=== PATIENT | female | born 1945 | race African-American/Black ===

== ENCOUNTER 2020-06-28 10:10 | Outpatient (REF) | payer OTHER, SELFPAY ==
[2020-06-28 10:56] LABS: MANUAL DIFF FLAG NO
[2020-06-28 10:57] LABS: Basophils Percent Auto 0.4 % (0-2); Eosinophils Percent Auto 0.4 % (0-4); Hematocrit 37.9 % (37-47); Hemoglobin 11.9 g/dl (12.0-16.0); Imm Gran Abs Auto 0.01 X10*3/uL (0.00-0.03); Imm Gran Pct Auto 0.2 % (0.0-0.4); Lymphocytes Absolute Auto 2.7 X10*3/uL (1.2-4.9); Lymphocytes Percent Auto 57.2 % (20-40); Mean Corpuscular HGB Conc 31.4 g/dl (31.0-35.0); Mean Corpuscular Hemoglobin 29.1 pg (27.0-33.0); Mean Corpuscular Volume 92.7 fL (80-98); Mean Platelet Volume 9.8 fL (9.4-12.3); Monocytes Absolute Auto 0.5 X10*3/uL (0.1-1.2); Monocytes Percent Auto 11.2 % (2-11); Neutrophils Absolute Auto 1.4 X10*3/uL (2.0-8.3); Neutrophils Percent Auto 30.6 % (45-73); Platelet Count 228 X10*3/uL (160-400); Red Blood Count 4.09 X10*6/uL (4.20-5.50); Red Cell Distribution Width 13.1 % (11.0-16.0); White Blood Count 4.6 X10*3/uL (4.8-10.8)
[2020-06-28 11:11] LABS: Glucose Urine UA NEG (NEG); Leukocyte Esterase Urine NEG (NEG); Nitrite Urine NEG (NEG); Specific Gravity - Urine >= 1.030 (1.005-1.025); Urine Blood 1+ (NEG); Urine Ketones NEG (NEG); Urine Protein 2+ MG/DL (NEG-TRACE)
[2020-06-28 11:14] LABS: Appearance Urine HAZY; Color Urine YELLOW
[2020-06-28 11:22] LABS: Alanine Aminotransferase 9 U/L (0-31); Albumin Level 4.3 g/dL (3.5-5.0); Alkaline Phosphatase 75 U/L (39-117); Anion Gap 15 (12-20); Aspartate Amino Transferase 15 U/L (5-31); Bilirubin Total 0.5 mg/dL (0.0-1.0); Blood Urea Nitrogen 27 mg/dL (9-16); Calcium 9.6 mg/dL (8.4-10.2); Carbon Dioxide 27 mmol/L (22-29); Chloride 103 mmol/L (96-108); Cholesterol 180 mg/dL; Estimated Glomerular Filt Rate 34; Glucose Fasting 90 mg/dL (60-99); HDL Cholesterol 45 mg/dL; LDL Cholesterol Calculated 115 mg/dl; Potassium 4.5 mmol/l (3.3-5.1); Sodium 140 mmol/L (135-145); Total Protein 7.6 g/dL (6.5-8.0); Triglycerides 100 mg/dL
[2020-06-28 11:23] LABS: Amorphous Sediment Urine 1+ /LPF; Mucus Urine 3+ /LPF; Squamous Epithelial Cell Urine 2+ /LPF; WBC Urine 0 /HPF (0-4)
[2020-06-28 11:35] LABS: Reflex LDLD? No
[2020-06-28 11:43] LABS: Vitamin D 25-OH Total 119.6 ng/mL (>30)
== END 2020-06-28 10:11 | disposition home or self-care (01) ==
LOC: HO.LAB 10:10
PROVIDERS: PCP Internal Medicine; Visit Provider Internal Medicine
DX: Z00.00 Encounter for general adult medical examination without abnormal findings (principal); I10 Essential (primary) hypertension; E78.00 Pure hypercholesterolemia, unspecified; D70.8 Other neutropenia; E55.9 Vitamin D deficiency, unspecified
CPT/HCPCS: 36415; 80053; 80061; 81001; 81003; 82306; 85025

== ENCOUNTER 2020-08-24 10:39 | Outpatient (REF) | payer OTHER, SELFPAY ==
[2020-08-24 11:39] LABS: MANUAL DIFF FLAG NO
[2020-08-24 11:51] LABS: Basophils Percent Auto 0.6 % (0-2); Eosinophils Percent Auto 0.2 % (0-4); Hematocrit 36.6 % (37-47); Hemoglobin 11.6 g/dl (12.0-16.0); Imm Gran Abs Auto 0.01 X10*3/uL (0.00-0.03); Imm Gran Pct Auto 0.2 % (0.0-0.4); Lymphocytes Absolute Auto 2.5 X10*3/uL (1.2-4.9); Lymphocytes Percent Auto 47.8 % (20-40); Mean Corpuscular HGB Conc 31.7 g/dl (31.0-35.0); Mean Corpuscular Hemoglobin 28.6 pg (27.0-33.0); Mean Corpuscular Volume 90.1 fL (80-98); Mean Platelet Volume 10.2 fL (9.4-12.3); Monocytes Absolute Auto 0.8 X10*3/uL (0.1-1.2); Monocytes Percent Auto 14.5 % (2-11); Neutrophils Percent Auto 36.7 % (45-73); Platelet Count 244 X10*3/uL (160-400); Red Blood Count 4.06 X10*6/uL (4.20-5.50); Red Cell Distribution Width 12.2 % (11.0-16.0); White Blood Count 5.3 X10*3/uL (4.8-10.8)
[2020-08-24 12:21] LABS: Albumin Level 4.1 g/dL (3.5-5.0); Anion Gap 14 (12-20); Blood Urea Nitrogen 30 mg/dL (9-16); Carbon Dioxide 29 mmol/L (22-29); Chloride 102 mmol/L (96-108); Estimated Glomerular Filt Rate 37; Magnesium 2.4 mg/dL (1.6-2.6); Phosphorus 4.6 mg/dL (2.7-4.5); Potassium 4.5 mmol/L (3.3-5.1); Sodium 140 mmol/L (135-145)
[2020-08-24 12:46] LABS: Vitamin D 25-OH Total 102.9 ng/mL (>30)
[2020-08-24 13:33] LABS: Renal w Reflex Lab Use Only Order verified
[2020-08-26 12:07] LABS: Calcium (PTHI) 9.8 mg/dL (8.6-10.4); PTHI 26 pg/mL (14-64)
== END 2020-08-24 10:40 | disposition home or self-care (01) ==
LOC: HO.LAB 10:39
PROVIDERS: PCP Internal Medicine; Visit Provider Internal Medicine Nephrology
DX: I12.9 Hypertensive chronic kidney disease with stage 1 through stage 4 chronic kidney disease, or unspecified chronic kidney disease (principal); N18.9 Chronic kidney disease, unspecified; N17.9 Acute kidney failure, unspecified
CPT/HCPCS: 36415; 80051; 82040; 82306; 82310; 82565; 83735; 83970; 84100; 84520; 85025

== ENCOUNTER 2020-08-26 10:14 | Outpatient (REF) | payer OTHER, SELFPAY ==
[2020-08-26 12:34] LABS: Glucose Urine UA NEG (NEG); Leukocyte Esterase Urine NEG (NEG); Nitrite Urine NEG (NEG); Specific Gravity - Urine 1.025 (1.005-1.025); Urine Blood TRACE (NEG); Urine Ketones NEG (NEG); Urine Protein 1+ MG/DL (NEG-TRACE)
[2020-08-26 12:41] LABS: Appearance Urine HAZY; Color Urine YELLOW
[2020-08-26 12:59] LABS: Creatinine Urine 87.87 mg/dL; Total Protein Urine Random 57 mg/dL (<12)
[2020-08-26 13:16] LABS: Bacteria Urine 1+ /LPF; RBC Urine 0-2 /HPF (0); Squamous Epithelial Cell Urine 2+ /LPF; WBC Urine 0-2 /HPF (0-4)
[2020-08-26 13:17] LABS: Mucus Urine 1+ /LPF
== END 2020-08-26 10:15 | disposition home or self-care (01) ==
LOC: HO.LNP 10:14
PROVIDERS: Visit Provider Internal Medicine Nephrology
DX: Z13.89 Encounter for screening for other disorder (principal)
CPT/HCPCS: 81001; 81003; 84156

== ENCOUNTER 2020-12-27 10:46 | Outpatient (REF) | payer OTHER, SELFPAY ==
[2020-12-27 12:38] LABS: Alanine Aminotransferase 7 U/L (0-31); Albumin Level 4.2 g/dL (3.5-5.0); Alkaline Phosphatase 77 U/L (39-117); Aspartate Amino Transferase 16 U/L (5-31); Bilirubin Direct 0.2 mg/dL (0.0-0.5); Bilirubin Total 0.7 mg/dL (0.0-1.0); Cholesterol 182 mg/dL; HDL Cholesterol 50 mg/dL; LDL Cholesterol Calculated 107 mg/dl; Total Protein 7.5 g/dL (6.5-8.0); Triglycerides 125 mg/dL
[2020-12-27 13:07] LABS: Reflex LDLD? No
== END 2020-12-27 10:47 | disposition home or self-care (01) ==
LOC: HO.LNP 10:46
PROVIDERS: PCP Internal Medicine; Visit Provider Internal Medicine
DX: E78.00 Pure hypercholesterolemia, unspecified (principal)
CPT/HCPCS: 80061; 80076

== ENCOUNTER 2021-04-25 08:33 | Outpatient (REF) | payer OTHER, SELFPAY ==
--- NOTE | ~2021-04-25 | MM_ITS ---
EXAMINATION: MM SCREENING DIGITAL BREAST TOMOSYNTHESIS, BILATERAL CLINICAL INFORMATION: Screening. Asymptomatic. The lifetime risk of breast cancer based on the Tyrer-Cuzick Model is 2.8%. COMPARISON: Mammography: November 14, 2018 and studies dating back to June 08, 2010 TECHNIQUE: Digital breast tomosynthesis is performed in both the craniocaudal and mediolateral oblique views along with computer-aided detection (CAD). Synthesized 2D images are generated from the tomosynthesis. FINDINGS: There are scattered areas of fibroglandular density (ACR BI-RADS breast composition Category b). There are no significant masses, abnormal calcifications, or other abnormalities. MM/MM tomosynthesis screening BI IMPRESSION: There are no significant changes from prior study. ASSESSMENT: BI-RADS 1: Negative RECOMMENDATION: Routine annual mammography screening. This patient's information was entered into a reminder system with a target due date for their next mammogram.
== END 2021-04-25 08:34 | disposition home or self-care (01) ==
LOC: HO.MAMMO 08:33
PROVIDERS: Visit Provider Internal Medicine
DX: Z12.31 Encounter for screening mammogram for malignant neoplasm of breast (principal)
CPT/HCPCS: 77063; 77067

== ENCOUNTER 2021-05-09 10:20 | Outpatient (REF) | payer OTHER, SELFPAY ==
[2021-05-09 11:05] LABS: Appearance Urine CLEAR; Color Urine YELLOW; Glucose Urine UA NEG (NEG); Leukocyte Esterase Urine NEG (NEG); Nitrite Urine NEG (NEG); PH 5.5 (5.0-8.0); Specific Gravity - Urine >= 1.030 (1.005-1.025); Urine Blood 1+ (NEG); Urine Ketones NEG (NEG); Urine Protein 2+ MG/DL (NEG-TRACE)
[2021-05-09 12:00] LABS: Squamous Epithelial Cell Urine 1+ /LPF; WBC Urine 0 /HPF (0-4)
[2021-05-09 12:02] LABS: Amorphous Sediment Urine 1+ /LPF; Other Casts Urine 0-2 /LPF
== END 2021-05-09 10:21 | disposition home or self-care (01) ==
LOC: HO.LNP 10:20
PROVIDERS: PCP Internal Medicine; Visit Provider Internal Medicine
DX: R31.9 Hematuria, unspecified (principal); N39.0 Urinary tract infection, site not specified
CPT/HCPCS: 81001; 81003; 87086

== ENCOUNTER → 2021-05-23 08:25 | Outpatient (BNVA) | payer OTHER, SELFPAY | PROVIDERS: PCP Internal Medicine; Referring Provider Internal Medicine; Visit Provider Internal Medicine | DX: I42.9 Cardiomyopathy, unspecified (principal); I35.0 Nonrheumatic aortic (valve) stenosis; I44.7 Left bundle-branch block, unspecified; I12.9 Hypertensive chronic kidney disease with stage 1 through stage 4 chronic kidney disease, or unspecified chronic kidney disease; N18.9 Chronic kidney disease, unspecified; Q21.1 Atrial septal defect | CPT/HCPCS: 93005; 99212 ==

== ENCOUNTER 2021-07-11 10:42 | Outpatient (REF) | payer OTHER, MEDICAID, SELFPAY ==
[2021-07-11 10:47] LABS: MANUAL DIFF FLAG NO
[2021-07-11 11:24] LABS: Basophils Percent Auto 0.8 % (0-2); Eosinophils Percent Auto 0.4 % (0-4); Hematocrit 41.9 % (37.0-47.0); Hemoglobin 12.9 g/dl (12.0-16.0); Imm Gran Abs Auto 0.01 X10*3/uL (0.00-0.03); Imm Gran Pct Auto 0.2 % (0.0-0.4); Lymphocytes Absolute Auto 2.3 X10*3/uL (1.2-4.9); Lymphocytes Percent Auto 45.3 % (20-40); Mean Corpuscular HGB Conc 30.8 g/dl (31.0-35.0); Mean Corpuscular Hemoglobin 28.4 pg (27.0-33.0); Mean Corpuscular Volume 92.3 fL (80.0-98.0); Mean Platelet Volume 10.8 fL (9.4-12.3); Monocytes Absolute Auto 0.8 X10*3/uL (0.1-1.2); Monocytes Percent Auto 15.1 % (2-11); Neutrophils Percent Auto 38.2 % (45-73); Platelet Count 207 X10*3/uL (160-400); Red Blood Count 4.54 X10*6/uL (4.20-5.50); Red Cell Distribution Width 13.2 % (11.0-16.0); White Blood Count 5.1 X10*3/uL (4.8-10.8)
[2021-07-11 11:32] LABS: Appearance Urine CLEAR; Color Urine YELLOW; Glucose Urine UA NEG (NEG); Leukocyte Esterase Urine NEG (NEG); Nitrite Urine NEG (NEG); Specific Gravity - Urine 1.025 (1.005-1.025); Urine Blood 2+ (NEG); Urine Ketones NEG (NEG); Urine Protein 2+ MG/DL (NEG-TRACE)
[2021-07-11 11:50] LABS: Amorphous Sediment Urine 2+ /LPF; RBC Urine 0-2 /HPF (0); Squamous Epithelial Cell Urine 2+ /LPF; WBC Urine 0-2 /HPF (0-4)
[2021-07-11 12:05] LABS: Alanine Aminotransferase 9 U/L (0-31); Albumin Level 4.1 g/dL (3.5-5.0); Alkaline Phosphatase 100 U/L (39-117); Anion Gap 14 (12-20); Aspartate Amino Transferase 17 U/L (5-31); Bilirubin Total 0.7 mg/dL (0.0-1.0); Blood Urea Nitrogen 19 mg/dL (9-16); Calcium 10.2 mg/dL (8.4-10.2); Carbon Dioxide 26 mmol/L (22-29); Chloride 105 mmol/L (96-108); Cholesterol 175 mg/dL; Estimated Glomerular Filt Rate 30; Glucose Fasting 109 mg/dL (60-99); HDL Cholesterol 44 mg/dL; LDL Cholesterol Calculated 106 mg/dl; Potassium 4.2 mmol/L (3.3-5.1); Sodium 141 mmol/L (135-145); Total Protein 7.9 g/dL (6.5-8.0); Triglycerides 128 mg/dL
[2021-07-11 12:38] LABS: Vitamin D 25-OH Total 56.3 ng/mL (>30)
== END 2021-07-11 10:43 | disposition home or self-care (01) ==
LOC: HO.LNP 10:42
PROVIDERS: Visit Provider Internal Medicine
DX: Z00.00 Encounter for general adult medical examination without abnormal findings (principal); I10 Essential (primary) hypertension; E78.00 Pure hypercholesterolemia, unspecified; E55.9 Vitamin D deficiency, unspecified; D72.820 Lymphocytosis (symptomatic)
CPT/HCPCS: 80053; 80061; 81001; 81003; 82306; 84153; 85025

== ENCOUNTER → 2021-07-12 08:50 | Outpatient (REF) | payer OTHER, MEDICAID, SELFPAY ==
--- NOTE | 2021-07-12 08:53 | CA_ITS ---
Transthoracic Echocardiogram Patient (Last, First, Middle): Bernice Mena T Gender: Female Date of : 1945 Age: 75 Procedure Date: 07/12/2021 Procedure Type: Transthoracic Echocardiogram Location: OP Height: 172.72 cm Weight: 70.31 kg BSA: 1.83 m2 Heart Rate: bpm BP: 135 / 45 mmHg Table Worker: LORENZO Referring MD: Zia Holden MD Symptoms: I42.9 - Cardiomyopathy, unspecified Study Quality: Fair ECG Rhythm: Sinus Conclusions: - The left ventricular systolic function is mildly decreased. The visually estimated ejection fraction is between 45-50%. - There is mild aortic valve stenosis. Findings Left Ventricle Normal left ventricular cavity size. The left ventricular systolic function is mildly decreased. The visually estimated ejection fraction is between 45 50%. There is mild global hypokinesis. There is paradoxical septal motion consistent with a left bundle branch block. E/E prime ratio is between 8 and 15 consistent with indeterminate filling pressures. Evidence suggests grade I (mild) diastolic dysfunction. Right Ventricle Normal right ventricular cavity size and systolic function. Atria Both atria are normal in size. There is lipomatous hypertrophy of the interatrial septum. There is a mobile atrial septum noted. Interatrial shunt cannot be excluded. Aortic Valve There is moderate calcification of the aortic valve. There is mild aortic valve stenosis. The mean gradient is 11 mmHg. The aortic valve area is 1.55 cm2. There is trace (trivial) aortic valve regurgitation. Mitral Valve The mitral valve appears normal. There is trace mitral valve regurgitation. There is no mitral valve stenosis. Pulmonic Valve The pulmonic valve was not well visualized. Tricuspid Valve Normal tricuspid valve structure. There is mild tricuspid valve regurgitation. The pulmonary artery systolic pressure is normal. Great Vessels The aortic annulus, sinuses of valsalva, and asc aorta are normal in size. Venous The inferior vena cava is normal in size and collapses greater than 50% with inspiration. Pericardium/Pleural There is no evidence of pericardial effusion. Prior Study Comparison Changes noted compared to prior study dated: 12/09/2019. Slight increase in LVEF. Measurements 2D Linear Measurements IVSd: 0.96 0.6-0.9/0.6-1.0 cm LVIDd: 4.93 3.9-5.3/4.2-5.9 cm LVIDd Index: 2.69 2.4-3.2/2.2-3.1 cm/m2 LVIDs: 3.36 2.0-3.6 cm LVPWd: 0.82 0.7-1.1 cm Ao Root: 2.80 2.1-3.5 cm LA Diam: 3.20 2.7-3.8/3.0-4.0 cm LAIDs Index: 1.75 1.5-2.3 cm/m2 LV Mass: 190.28 67-162/88-224 g LV Mass Index: 103.98 43-95/49-115 g/m2 LVOT Diam: 2.00 3.0+(-)1.3 cm 2D Systolic Function EF 4C: 49.60 >55% EF 2C: 55.50 >55% EF BiP: 51.60 >55% Mitral Valve MV Pk E: 0.55 MV PK A: 0.78 MV Decel Time: 399.00 E/A: 0.70 E'Lateral: 5.44 E'Medial: 4.35 E/E' Med: 12.50 E/E' Lat: 10.00 PHT: 117.00 MVA PHT: 1.88 Decel Bandera: 1.37 Aortic Valve AoV Pk Luism Iguel: 2.36 AoV Mn Luis Miguel: 1.56 AoV VTI: 0.52 AoV Pk Grad: 22.00 Aov Mn Grad: 11.00 RIOS Cont.VTI: 1.55 LVOT LVOT Pk Luis Miguel: 1.01 LVOT Mn Luis Miguel: 0.76 LVOT VTI: 0.26 LVOT Pk Grad: 4.00 LVOT Mn Grad: 3.00 LVOT Diam: 2.00 LVOT Area: 3.14 Diastolic Function MV Pk E: 0.55 MV Pk A: 0.78 E/A: 0.70 E'Medial: 4.35 E/E' Med: 12.50 E' Laterial: 5.44 E/E' Lat: 10.00 Right Ventricle TAPSE (mm): 20.80 TVS' Luis Miguel: 10.10 Tricuspid Valve TR Pk Luis Miguel: 2.47 TR Pk Grad: 24.00 RA Press: 3.00 RVSP: 27.00 Great Vessels Aorta Ao Root-2D: 2.80 2.0-3.7 cm Ao Asc: 3.10 2.1-3.4 cm Ao Arch: 2.70 Updated in Other Vendor System with Status of Final Zia Holden MD electronically signed on 07/15/2021 8:40:22 AM with status of Final
== END ==
LOC: HO.CARD 08:50
PROVIDERS: PCP Internal Medicine; Visit Provider Internal Medicine
DX: I42.9 Cardiomyopathy, unspecified (principal)
CPT/HCPCS: 93306

== ENCOUNTER → 2021-07-24 08:13 | Outpatient (BNVA) | payer OTHER, MEDICAID, SELFPAY | PROVIDERS: PCP Internal Medicine; Referring Provider Internal Medicine; Visit Provider Internal Medicine | DX: I42.9 Cardiomyopathy, unspecified (principal); I35.0 Nonrheumatic aortic (valve) stenosis; I44.7 Left bundle-branch block, unspecified; I12.9 Hypertensive chronic kidney disease with stage 1 through stage 4 chronic kidney disease, or unspecified chronic kidney disease; N18.9 Chronic kidney disease, unspecified; Q21.1 Atrial septal defect | CPT/HCPCS: 99212 ==

== ENCOUNTER → 2021-09-19 08:27 | Outpatient (BNVA) | payer OTHER, MEDICAID, SELFPAY | PROVIDERS: PCP Internal Medicine; Visit Provider Obstetrics & Gynecology | DX: Z13.89 Encounter for screening for other disorder (principal) ==

== ENCOUNTER 2021-10-03 08:45 | Outpatient (REF) | payer OTHER, MEDICAID, SELFPAY ==
--- NOTE | ~2021-10-03 | MM_ITS ---
EXAMINATION: BONE DENSITOMETRY CLINICAL INDICATION: Menopausal female climacteric states. COMPARISON: Previous BD dated 06/30/2019 and baseline BD dated 04/03/2007. TECHNIQUE: Using a [employer] DXA System (software version: 13.1) manufactured by [employer], dual-energy x-ray absorptiometry was performed of the lumbar spine and left hip. The images are of good technical quality. Summary results are attached. FINDINGS: AP SPINE L1-L4: Current: BMD 1.228 g/cm2, Z-score 1.4, T-score 0.4, normal, 0.9% decrease from previous, 13.5% decrease from baseline (<5% change is not significant). Prior: BMD 1.239 g/cm2. Baseline: BMD 1.420 g/cm2. LEFT FEMUR, NECK: Current: BMD 0.904 g/cm2, Z-score 0.1, T-score -1.0, normal. Prior: BMD 0.904 g/cm2. Baseline: BMD 0.983 g/cm2. LEFT FEMUR, TOTAL: Current: BMD 0.773 g/cm2, Z-score -1.1, T-score -1.9, osteopenia, 12.9% decrease from previous, 21.7% decrease from baseline (<5% change is not significant). Prior: BMD 0.887 g/cm2. Baseline: BMD 0.987 g/cm2. IDENTIFIED RISK FACTORS: Rheumatoid arthritis, kidney disease, height loss, low body weight, low calcium intake. Early menopause, secondary osteoporosis, hysterectomy, bilateral oophorectomy. HISTORY OF FRACTURE: None listed. MEDICATIONS: Calcium supplements or multivitamin, vitamin D. MM/XR DEXA axial skeleton IMPRESSION: 1. DIAGNOSIS: Osteopenia based on the lowest T-score value of -1.9 in the total femur applying World Health Organization criteria. 2. 10-YEAR FRACTURE RISK PREDICTION, FRAX: Major osteoporotic fracture (clinical spine, forearm, hip or shoulder) 6.2%. Hip fracture 1.2%. 3. Treatment Recommendations: NOF guidelines recommend consideration for treatment in postmenopausal women and men age 50 and older presenting with the following: -A hip or vertebral (clinical or morphometric) fracture. -T-score less than or equal to -2.5 at the femoral neck or spine after appropriate evaluation to exclude secondary causes. -Low bone mass at the hip or spine and a 10-year fracture probability by FRAX of greater than or equal to 3% for hip fracture or greater than or equal to 20% for major osteoporotic fracture based on the [place] adapted WHO algorithm. 4. Other Recommendations: All treatment decisions require clinical judgment and consideration of individual patient factors, including patient preferences, comorbidities, previous drug use, risk factors not captured in the FRAX model (e.g. frailty, falls, vitamin D deficiency, increased bone turnover, interval significant decline in bone density) and possible under or overestimation of fracture risk by FRAX. Additional medical evaluation for secondary cause of low bone mineral density may be appropriate. FUTURE SCAN RECOMMENDATION: People with diagnosed cases of osteoporosis or at high risk for fracture should have regular bone mineral density tests. For patients eligible for Medicare, routine testing is allowed once every 2 years. The testing frequency can be increased to one year for patients who have rapidly progressing disease, those who are receiving or discontinuing medical therapy to restore bone mass, or have additional risk factors.
== END 2021-10-03 08:46 | disposition home or self-care (01) ==
LOC: HO.MAMMO 08:45
PROVIDERS: PCP Internal Medicine; Visit Provider Obstetrics & Gynecology
DX: Z13.820 Encounter for screening for osteoporosis (principal); Z78.0 Asymptomatic menopausal state; M85.80 Other specified disorders of bone density and structure, unspecified site; M06.9 Rheumatoid arthritis, unspecified; Z90.710 Acquired absence of both cervix and uterus; Z90.722 Acquired absence of ovaries, bilateral
CPT/HCPCS: 77080

== ENCOUNTER → 2021-10-17 11:18 | Outpatient (BNVA) | payer OTHER, MEDICAID, SELFPAY | PROVIDERS: Visit Provider Obstetrics & Gynecology | DX: M85.80 Other specified disorders of bone density and structure, unspecified site (principal) | CPT/HCPCS: Q3014 ==

== ENCOUNTER 2021-10-23 08:42 | Outpatient (REF) | payer OTHER, MEDICAID, SELFPAY ==
[2021-10-23 09:17] LABS: MANUAL DIFF FLAG NO
[2021-10-23 09:47] LABS: Basophils Percent Auto 0.7 % (0-2); Eosinophils Percent Auto 0.7 % (0-4); Hematocrit 38.9 % (37.0-47.0); Hemoglobin 11.9 g/dl (12.0-16.0); Lymphocytes Percent Auto 46.9 % (20-40); Mean Corpuscular HGB Conc 30.6 g/dl (31.0-35.0); Mean Corpuscular Hemoglobin 27.4 pg (27.0-33.0); Mean Corpuscular Volume 89.6 fL (80.0-98.0); Mean Platelet Volume 11.6 fL (9.4-12.3); Monocytes Absolute Auto 0.6 X10*3/uL (0.1-1.2); Monocytes Percent Auto 14.7 % (2-11); Neutrophils Absolute Auto 1.5 x10*3/uL (2.0-8.3); Platelet Count 168 X10*3/uL (160-400); Red Blood Count 4.34 X10*6/uL (4.20-5.50); Red Cell Distribution Width 12.1 % (11.0-16.0); White Blood Count 4.2 X10*3/uL (4.8-10.8)
[2021-10-23 10:09] LABS: Anion Gap 10 (12-20); Blood Urea Nitrogen 19 mg/dL (9-16); Calcium 9.7 mg/dL (8.4-10.2); Carbon Dioxide 30 mmol/L (22-29); Chloride 105 mmol/L (96-108); Estimated Glomerular Filt Rate 39; Magnesium 2.2 mg/dL (1.6-2.6); Phosphorus 4.2 mg/dL (2.7-4.5); Potassium 4.8 mmol/L (3.3-5.1); Sodium 140 mmol/L (135-145)
[2021-10-23 10:28] LABS: HBS Num1 2.32 mIU/mL (0-7.99); HBc Num1 0.18 S/CO (0.00-0.79); HBsAGNum1 0.24 S/CO (0.00-0.99); Hepatitis B Core Antibody Nonreactive (Nonreactive); Hepatitis B Surface Antigen Negative (Negative); ~HepC Num1 0.15 S/CO (0.00-0.79); ~Hepatitis B Surface Antibody NONREACTIVE (Nonreactive); ~Hepatitis C Antibody Nonreactive (Nonreactive)
[2021-10-23 10:32] LABS: Vitamin D 25-OH Total 56.2 ng/mL (>30)
[2021-10-23 14:40] LABS: Appearance Urine HAZY; Color Urine YELLOW; Glucose Urine UA NEG (NEG); Leukocyte Esterase Urine NEG (NEG); Nitrite Urine NEG (NEG); PH 5.5 (5.0-8.0); Specific Gravity - Urine 1.025 (1.005-1.025); Urine Blood TRACE (NEG); Urine Ketones NEG (NEG); Urine Protein 1+ MG/DL (NEG-TRACE)
[2021-10-23 15:05] LABS: Creatinine Urine 170.47 mg/dL; Microalbum/Creatinine Ratio Ur 26.9 ug/mg cr; Protein/Creatinine Ratio, Ur 0.34 (<0.2); Total Protein Urine Random 58 mg/dL (<12)
[2021-10-23 15:19] LABS: RBC Urine 0-2 /HPF (0); Squamous Epithelial Cell Urine 3+ /LPF; WBC Urine 0-2 /HPF (0-4)
[2021-10-24 11:27] LABS: Calcium (PTHI) 9.7 mg/dL (8.6-10.4); PTHI 69 pg/mL (16-77)
[2021-10-24 16:12] LABS: Complement C3 141 mg/dL (83-193)
[2021-10-25 14:26] LABS: Anti Nuclear Antibody Screen NEGATIVE (NEGATIVE)
[2021-10-26 18:50] LABS: Kappa Light Chain, Free Serum 41.4 mg/L (3.3-19.4); Kappa/Lambda Lt Ch Free Ratio 1.54 (0.26-1.65); Lambda Light Chain, Free Serum 26.8 mg/L (5.7-26.3)
[2021-10-26 22:36] LABS: Prot Elec - Albumin 3.8 g/dL (3.8-4.8); Prot Elec - Alpha1 0.5 g/dL (0.2-0.3); Prot Elec - Alpha2 0.7 g/dL (0.5-0.9); Prot Elec - Beta 1 0.6 g/dL (0.4-0.6); Prot Elec - Beta 2 0.4 g/dL (0.2-0.5); Prot Elec - Gamma 1.5 g/dL (0.8-1.7); Prot Elec - Total Protein 7.6 g/dL (6.1-8.1)
== END 2021-10-23 08:43 | disposition home or self-care (01) ==
LOC: HO.LAB 08:42
PROVIDERS: PCP Internal Medicine; Visit Provider Internal Medicine Nephrology
DX: I12.9 Hypertensive chronic kidney disease with stage 1 through stage 4 chronic kidney disease, or unspecified chronic kidney disease (principal); N18.32 Chronic kidney disease, stage 3b; N25.0 Renal osteodystrophy
CPT/HCPCS: 36415; 80051; 81001; 81003; 82040; 82043; 82306; 82310; 82565; 83521; 83735; 83970; 84100; 84156; 84165; 84520; 85025; 86038; 86039; 86160; 86704; 86706; 86803; 87086; 87340

== ENCOUNTER → 2021-11-03 10:39 | Outpatient (BNVA) | payer OTHER, MEDICAID, SELFPAY | PROVIDERS: PCP Internal Medicine | DX: R31.9 Hematuria, unspecified (principal) | CPT/HCPCS: 99202 ==

== ENCOUNTER 2021-11-17 08:42 | Outpatient (REF) | payer OTHER, MEDICAID, SELFPAY ==
--- NOTE | ~2021-11-17 | CT_ITS ---
EXAMINATION: CT ABDOMEN AND PELVIS WITHOUT CONTRAST CLINICAL INFORMATION: Hematuria COMPARISON: Previous CT of the abdomen and pelvis September 2019 TECHNIQUE: Multidetector volumetric imaging was performed from the superior aspect of the liver through the pubic symphysis. Sagittal and coronal reformatted images were obtained on the technologist's workstation. This CT examination was performed using dose optimization techniques as appropriate, variously including the following: *Automated exposure control *Adjustment of mA and/or kV according to patient size (this includes techniques or standardized protocols for targeted exams where dose is matched to indication/reason for exam; i.e. extremities or head) *Use of iterative reconstruction technique DLP: 353 mGy-cm FINDINGS: LUNG BASES: There is a 4 right lower lobe nodule axial image 4 series 3 this is not appreciated on previous exam. LIVER, GALLBLADDER, AND BILIARY TREE: The liver is normal in size, shape, and attenuation. No focal hepatic lesion or biliary ductal dilatation is present. The gallbladder is unremarkable with no evidence of radiopaque gallstones, gallbladder wall thickening, or obvious pericholecystic inflammatory changes. PANCREAS: Unremarkable. SPLEEN: Unremarkable. ADRENAL GLANDS: Unremarkable. KIDNEYS AND URETERS: There are several small 1 to 2 mm stones in the mid and lower pole of the right kidney. There is a 1 cm low-attenuation lesion exophytic to the upper pole the right kidney and 2 cm lesion in the anterior lower pole of the left kidney probably representing cysts. This is similar to previous exam. The kidneys are otherwise normal. BLADDER: There may be laxity of the pelvic muscles with the bladder draping lateral to the obturator internus muscle on the right. This is similar to previous exam. GASTROINTESTINAL TRACT: Stool throughout the colon. The small and large bowel are unremarkable. The appendix is unremarkable. Stomach is not optimally distended. Question mild fullness or all wall thickening of the proximal stomach. ABDOMINAL WALL: Small umbilical hernia containing fat. Small bilateral inguinal hernias containing fat. LYMPH NODES: Normal. VASCULAR: Atherosclerotic disease. No aneurysm. PELVIC VISCERA: Unremarkable. OSSEOUS STRUCTURES: There are degenerative changes of the spine. There are old mild T12 and L4 vertebral body compression fractures versus Schmorl's nodes. There are degenerative changes at the hip joints. CT/CT abdomen pelvis wo con IMPRESSION: Small right renal stones. Stable bilateral renal cysts. No imaging follow-up. Laxity of the pelvic floor on the right with herniation of the right lateral bladder wall lateral to the obturator internus muscle. New 4 mm right lower lobe nodule. Follow-up chest CT could be considered if clinically indicated. Fleischner guidelines were followed.
== END 2021-11-17 08:43 | disposition home or self-care (01) ==
LOC: HO.CT 08:42
PROVIDERS: Visit Provider Internal Medicine
DX: R31.9 Hematuria, unspecified (principal)
CPT/HCPCS: 74176

== ENCOUNTER 2021-11-25 07:57 | Emergency (ER) | payer OTHER, MEDICAID, SELFPAY ==
--- NOTE | 2021-11-25 08:29 | ECG_ITS ---
Test Reason : DIZZINESS Blood Pressure : / mmHG Vent. Rate : 066 BPM Atrial Rate : 066 BPM P-R Int : 180 ms QRS Dur : 152 ms QT Int : 448 ms P-R-T Axes : 008 -42 091 degrees QTc Int : 469 ms Normal sinus rhythm Left axis deviation Left bundle branch block Abnormal ECG When compared with ECG of 20-OCT-2019 07:26, No significant change was found Referred By: Jenniffer Wen Electronically Signed By:Lenny Ramachandran
--- NOTE | 2021-11-25 08:30 | ED_ITS ---
HPI - Psych General Chief Complaint: General Medical Stated Complaint: dizzy Time Seen by Provider: 11/25/21 08:28 Source: patient Mode of arrival: EMS Limitations: no limitations History of Present Illness MD complaint: feels depressed, anxiety and other ( I am down dizzy) Onset (ago): day(s) (yesterday) Duration: constant History of same: Yes Relieving factors: none Exacerbating factors: other (feels lonely, unsafe in her housing, her laundry room got locked with her belongings in it - in her building became very anxious worked hard to get the door open now exhausted) Context: other (reports increasing depression over the last few months) Associated psychiatric symptoms: depression Associated symptoms: other (malaise, feels dizzy, didn't eat dinner or breakfast because she was so upset) Treatments prior to arrival: none Related Data Home Medications Medication Instructions Recorded Confirmed rosuvastatin 40 mg tablet 40 mg PO DAILY 05/23/21 07/24/21 polyvinyl alcohol 1.4 % eye drops 0 drp OPHTHALMIC (EYE) 11/03/21 (Artificial Tears (polyvinyl alcohol)) Previous Rx's Medication Instructions Recorded carvedilol 3.125 mg tablet 3.125 mg PO BID 90 Days #180 tab 07/21/21 Allergies Allergy/AdvReac Type Severity Reaction Status Date / Time No Known Allergies Allergy Mild N/A Verified 11/03/21 11:16 Review of Systems Review of Systems: Constitutional : No Fever, No Chills, pos malaise, pos anorexia ENT/Mouth : No Ear Pain, No Nasal Congestion, No sore throat Eyes: No Eye Pain, No Swelling, No Redness Cardiovascular : No Chest Pain, No SOB Respiratory : No Cough, No Sputum, No Dyspnea Gastrointestinal : No Nausea, No Vomiting, No Diarrhea, No Hematochezia, No Melena Genitourinary : No Dysuria, No Urinary Frequency, No Hematuria Musculoskeletal : No Myalgias Skin : No Skin Lesions, No rash Neuro : No Weakness, No Numbness, No Paresthesias, pos Dizziness, No Headache Psych : positive Anxiety, positive Depression, no SI/HI Heme/Lymph: No Lymphadenopathy Endocrine : No Polyuria, No Polydipsia All other systems reviewed and are negative COUNT INCLUDES THE [facility] Past Medical History Attestation statement: The following information was validated with the patient. Medical History Arthritis Cardiomyopathy Chronic kidney disease Essential hypertension GERD (gastroesophageal reflux disease) Hematuria Hyperlipemia Hypertension LBBB (left bundle branch block) PFO (patent foramen ovale) Surgical History History of appendectomy History of hysterectomy Family History Family History Father Hypertension Mother Hypertension Social History Social History Patient Tobacco Use Status: Never used Tobacco Advance Directives: No Advance Directives Information Provided: Yes Physical Exam Vital Signs: Vital Signs: Last Vital Signs Temp 98.3 F 11/25/21 08:58 Pulse 63 11/25/21 08:58 Resp 16 11/25/21 08:58 BP 126/44 L 11/25/21 08:58 Pulse Ox 98 11/25/21 08:58 BMI result Body Mass Index 23.8 Appearance: Alert. Oriented X3. No acute distress. Flat affect, appears depressed Eyes: Pupils equal, round and reactive to light. ENT: Pharynx normal. Neck: Normal inspection. Neck supple. CVS: Normal heart rate and rhythm. Pulses normal. Respiratory: No respiratory distress. Breath sounds normal. Abdomen: Soft and nontender. Skin: Skin warm and dry. Normal skin color. Normal skin turgor. Extremities: No lower extremity edema. No calf ttp Neuro: Oriented X 3. No motor deficit. No sensory deficit. No drift CN 2-12 intact Course Course Course Narrative: cleared by CARE team - grief reaction no SI, will set up [facility] and CM involved, plans to stay with cousin in [place] MDM - Psych MDM Narrative Medical decision making narrative: 76 yo female hx of cardiomyopathy, HLD, depression here with c/o increased depression and feeling down she is also dizzy. She has no CP/SOB no neuro deficitis she hasn't eaten since yesterday. At this time will obtain basic labs, EKG, order diet for patient - suspect that she is depressed and she admits she needs to talk to someone - no SI. Doubt stroke/ACS/GIB at this time. Lab Data Result diagrams: 11/25/21 08:48 11/25/21 08:48 Labs: Lab Results 11/25/21 11/25/21 11/25/21 Range/Units 08:48 08:48 08:48 WBC 4.9 (4.8-10.8) X10*3/uL RBC 4.05 L (4.20-5.50) X10*6/uL Hgb 11.1 L (12.0-16.0) g/dl Hct 35.0 L (37.0-47.0) % MCV 86.4 (80.0-98.0) fL MCH 27.4 (27.0-33.0) pg MCHC 31.7 (31.0-35.0) g/dl RDW 12.7 (11.0-16.0) % Plt Count 226 D (160-400) X10*3/uL MPV 9.5 (9.4-12.3) fL Immature Gran % (Auto) 0.2 (0.0-0.4) % Neut % (Auto) 45.2 (45-73) % Lymph % (Auto) 35.7 (20-40) % [place] % (Auto) 17.9 H (2-11) % Eos % (Auto) 0.4 (0-4) % Baso % (Auto) 0.6 (0-2) % Lymph # (Auto) 1.7 (1.2-4.9) X10*3/uL [place] # (Auto) 0.9 (0.1-1.2) X10*3/uL Eos # (Auto) 0.0 (0.0-0.4) X10*3/uL Baso # (Auto) 0.0 (0.0-0.2) X10*3/uL Abs Immat Gran (auto) 0.01 (0.00-0.03) X10*3/uL Absolute Neuts (auto) 2.2 (2.0-8.3) x10*3/uL Absolute Nucleated RBC 0.000 (0.0-0.012) X10*3/uL Nucleated RBC % (auto) 0.0 (0.0-0.2) /100WBC Sodium 140 (135-145) mmol/L Potassium 4.6 (3.3-5.1) mmol/L Chloride 106 (96-108) mmol/L Carbon Dioxide 25 (22-29) mmol/L Anion Gap 14 (12-20) BUN 27 H (9-16) mg/dL Creatinine 1.56 H (0.5-1.4) mg/dL Estim Creat Clear Calc 29.9 Estimated GFR 32 Random Glucose 104 (60-115) mg/dL Calcium 9.8 (8.4-10.2) mg/dL Magnesium 2.5 (1.6-2.6) mg/dL Total Bilirubin 0.6 (0.0-1.0) mg/dL Direct Bilirubin 0.3 (0.0-0.5) mg/dL AST 16 (5-31) U/L ALT 7 (0-31) U/L Alkaline Phosphatase 71 D (39-117) U/L Troponin I High Sens < 3.5 (<3.5-17.0) ng/L Total Protein 7.3 (6.5-8.0) g/dL Albumin 3.8 (3.5-5.0) g/dL COVID-19 (BRYANNA) (Negative) COVID-19 Clin Com 11/25/21 Range/Units 08:48 WBC (4.8-10.8) X10*3/uL RBC (4.20-5.50) X10*6/uL Hgb (12.0-16.0) g/dl Hct (37.0-47.0) % MCV (80.0-98.0) fL MCH (27.0-33.0) pg MCHC (31.0-35.0) g/dl RDW (11.0-16.0) % Plt Count (160-400) X10*3/uL MPV (9.4-12.3) fL Immature Gran % (Auto) (0.0-0.4) % Neut % (Auto) (45-73) % Lymph % (Auto) (20-40) % [place] % (Auto) (2-11) % Eos % (Auto) (0-4) % Baso % (Auto) (0-2) % Lymph # (Auto) (1.2-4.9) X10*3/uL [place] # (Auto) (0.1-1.2) X10*3/uL Eos # (Auto) (0.0-0.4) X10*3/uL Baso # (Auto) (0.0-0.2) X10*3/uL Abs Immat Gran (auto) (0.00-0.03) X10*3/uL Absolute Neuts (auto) (2.0-8.3) x10*3/uL Absolute Nucleated RBC (0.0-0.012) X10*3/uL Nucleated RBC % (auto) (0.0-0.2) /100WBC Sodium (135-145) mmol/L Potassium (3.3-5.1) mmol/L Chloride (96-108) mmol/L Carbon Dioxide (22-29) mmol/L Anion Gap (12-20) BUN (9-16) mg/dL Creatinine (0.5-1.4) mg/dL Estim Creat Clear Calc Estimated GFR Random Glucose (60-115) mg/dL Calcium (8.4-10.2) mg/dL Magnesium (1.6-2.6) mg/dL Total Bilirubin (0.0-1.0) mg/dL Direct Bilirubin (0.0-0.5) mg/dL AST (5-31) U/L ALT (0-31) U/L Alkaline Phosphatase (39-117) U/L Troponin I High Sens (<3.5-17.0) ng/L Total Protein (6.5-8.0) g/dL Albumin (3.5-5.0) g/dL COVID-19 (BRYANNA) Negative (Negative) COVID-19 Clin Com See Note ECG Data Attestation: I personally reviewed and interpreted this ECG as follows: ECG interpretation date: 11/25/21 ECG interpretation time: 09:16 Interpretation: Rate: 66 Rhythm: NSR Rainier: left Normal P waves. Normal POPEYE. LBBB ST T wave : nonspecific no LIZ qTC: normal prior studies: no acute ischemia The study has been interpreted contemporaneously by me. Discharge Plan Discharge Clinical Impression: Depression Qualifiers: Depression Type: other depression Qualified Code(s): F32.89 - Other specified depressive episodes Patient Disposition: Home, Self-Care Instructions: Depression (ED) Additional Instructions: return to ED for any worsening symptoms or concerns a referral was put in for [facility] Prescriptions: No Action carvedilol 3.125 mg tablet 3.125 mg PO BID 90 Days Qty: 180 2RF Rx Instructions: must administer with a meal/food. polyvinyl alcohol [Artificial Tears (polyvin alc)] 1.4 % drops 0 drp ophthalmic (eye) 0RF rosuvastatin 40 mg tablet 40 mg PO DAILY 0RF
[2021-11-25 08:33] VITALS: BP 117/67; BP 120/49; PULSE 69; PULSE 70; RESP 18; TEMP 36.9; O2SAT 97; O2SAT 99; BMI 23.8
[2021-11-25 08:53] LABS: Basophils Percent Auto 0.6 % (0-2); Eosinophils Percent Auto 0.4 % (0-4); Hemoglobin 11.1 g/dl (12.0-16.0); Imm Gran Abs Auto 0.01 X10*3/uL (0.00-0.03); Imm Gran Pct Auto 0.2 % (0.0-0.4); Lymphocytes Absolute Auto 1.7 X10*3/uL (1.2-4.9); Lymphocytes Percent Auto 35.7 % (20-40); Mean Corpuscular HGB Conc 31.7 g/dl (31.0-35.0); Mean Corpuscular Hemoglobin 27.4 pg (27.0-33.0); Mean Corpuscular Volume 86.4 fL (80.0-98.0); Mean Platelet Volume 9.5 fL (9.4-12.3); Monocytes Absolute Auto 0.9 X10*3/uL (0.1-1.2); Monocytes Percent Auto 17.9 % (2-11); Neutrophils Absolute Auto 2.2 x10*3/uL (2.0-8.3); Neutrophils Percent Auto 45.2 % (45-73); Platelet Count 226 X10*3/uL (160-400); Red Blood Count 4.05 X10*6/uL (4.20-5.50); Red Cell Distribution Width 12.7 % (11.0-16.0); White Blood Count 4.9 X10*3/uL (4.8-10.8)
[2021-11-25 08:54] LABS: MANUAL DIFF FLAG NO
[2021-11-25 08:58] VITALS: BP 126/44; PULSE 63; RESP 16; TEMP 36.8; O2SAT 98
[2021-11-25 09:09] LABS: COVID-19 Test Negative (Negative); IDNOW Serial# 16C4AD1C
[2021-11-25 09:14] LABS: Troponin-I High Sensitivity < 3.5 ng/L (<3.5-17.0)
[2021-11-25 09:17] LABS: Alanine Aminotransferase 7 U/L (0-31); Albumin Level 3.8 g/dL (3.5-5.0); Alkaline Phosphatase 71 U/L (39-117); Anion Gap 14 (12-20); Aspartate Amino Transferase 16 U/L (5-31); Bilirubin Direct 0.3 mg/dL (0.0-0.5); Bilirubin Total 0.6 mg/dL (0.0-1.0); Blood Urea Nitrogen 27 mg/dL (9-16); Calcium 9.8 mg/dL (8.4-10.2); Carbon Dioxide 25 mmol/L (22-29); Chloride 106 mmol/L (96-108); Creatinine Clr Calc Pharmacy 29.9; Estimated Glomerular Filt Rate 32; Glucose Random 104 mg/dL (60-115); Magnesium 2.5 mg/dL (1.6-2.6); Potassium 4.6 mmol/L (3.3-5.1); Sodium 140 mmol/L (135-145); Total Protein 7.3 g/dL (6.5-8.0)
--- NOTE | 2021-11-25 11:34 | MHC.CARE ---
Consult requested for risk assessment on 76-year-old, female who presented to [place] [facility] reporting dizziness . She was medically cleared and referred to CARE team after she reported feeling depressed and lonely. She is not known to CARE team and has no prior inpatient psychiatric admissions or mental health treatment. She reports she has been feeling depressed for the past two weeks due to multiple stressers at her condo complex recently. Bernice reports she pays $140.00 in monthly [facility] fees and [facility] is not having meetings to update or communicate with the owners and are not caring or up keeping the property grounds. Bernice reports she has lived there for 17 years and she is very angry and frustrated, she reports others are upset as well. Bernice reports she recently locked herself out of the laundry room with her cloths and keys in there and this was the trigger for her coming to the ER today. She reports she was feeling dizzy and states I don't feel well medically . She does not report any sleep or appetite disturbances and her eye contact is good and her speech is WNL for rate, tome and volume. Hygiene and grooming are fair, she reports her mood as depressed, lonely affect is flat. She denies any suicidal or homicidal ideation plan or intent. She denies any audio or visual hallucinations and does not appear to be responding to any internal stimuli currently. She reports her memory is poor at times and she gets forgetful, like locking her keys in her laundry room at [facility] recently. Thought process is clear and organized and she is oriented x3. Insight, judgment and impulse control are good. Initially she does not disclose her sisters recent passing, CARE team discussed her recent loss of independence and she admits this continues to be an adjustment she is having difficulty dealing with. [facility] referral was discussed and she reports she has services starting on December 11, 2021 2x weekly for 4 1/2 hours daily for supportive services in her home. CARE team discussed recent passing of her sister and she becomes tearful, crying and states I forgot to tell you, she passed . She admits she is grieving the loss of her sister and CARE team discussed referral for outpatient therapists for 1:1 individual therapy and she is agreeable. CARE team spoke with her son and he reports he called 911 for a well being check to be done on his mother today she was not answering the phone and he was worried as both himself and his girlfriend are out of town currently. Son reports he has noticed personality changes in his mother, she will be calm one moment and angry the next . Both son and his girlfriend reports they have also noticed some memory and cognitive impairment recently and questioned sung Queen may have beginning stages of dementia. Son also reports Bernice's sister recently of ovarian cancer on October 30, 2021 and this was very difficult for Bernice as her sister resided in [place] and she did not get to see her before her . Son reports after the of her sister Bernice has started presenting to multiple doctors with somatic complaints, fearful she is dying to. Son states I think she has borderline personality disorder , however its never been formally diagnosed. He reports she has no prior history of mental illness, suicide attempts or self harming behaviors. Both Bernice and her son feels safe with her discharging home, however she would prefer to stay with family instead of returning home alone today. Son reports he is out of town currently and Bernice can go and stay with her cousin Mildred in [place], [place] and Bernice agrees to discharge plan and is very happy stating I love Mildred . CARE team made referral to [facility] for outpatient therapist and they will reach out to cousin to schedule appt per Bernice's requests. CARE team referred to case management to coordinate discharge as Bernice does not meet criteria for inpatient level of care currently and will benefit from out patient referral to therapists for bereavement counseling. Case management will reach out to cousin to coordinate discharge plan.
== END 2021-11-25 15:47 | disposition home or self-care (01) ==
PROVIDERS: Emergency Provider Emergency Medicine; PCP Internal Medicine
DX: F33.1 Major depressive disorder, recurrent, moderate (principal); R42 Dizziness and giddiness; F41.1 Generalized anxiety disorder; F43.0 Acute stress reaction; Z20.822 Contact with and (suspected) exposure to COVID-19; Z79.899 Other long term (current) drug therapy
CPT/HCPCS: 36415; 80048; 80076; 83735; 84484; 85025; 87635; 93005; 99283

== ENCOUNTER 2021-12-12 10:04 | Emergency (ER) | payer OTHER, MEDICAID, SELFPAY ==
--- NOTE | ~2021-12-12 | CT_ITS ---
EXAMINATION: CT HEAD WITHOUT CONTRAST CLINICAL INFORMATION: Falls. COMPARISON: Noncontrast CT head 10/17/2019. TECHNIQUE: Contiguous axial imaging was performed from the skull base to vertex without intravenous administration of contrast. Additional 2-D coronal and sagittal reformatted images are generated on the CT workstation and uploaded to PACS. Preliminary interpretation provided at time of exam during PACS downtime. This CT examination was performed using dose optimization techniques as appropriate, variously including the following: *Automated exposure control *Adjustment of mA and/or kV according to patient size (this includes techniques or standardized protocols for targeted exams where dose is matched to indication/reason for exam; i.e. extremities or head) *Use of iterative reconstruction technique DLP: 556 mGy-cm FINDINGS: There is widespread abnormality in the left cerebral hemisphere with vasogenic edema greater posteriorly. There is suggestion of a 2 cm round low-attenuation mass in the left parietal lobe isointense with the edema. There are some scattered high attenuation foci posterior occipital parietal region suggesting petechial parenchymal contusions. There is no extra-axial hemorrhage or fluid collection. No intraventricular hemorrhage. No acute intraparenchymal hematoma. There is mass effect on the left cortical sulci which are effaced. Mild subfalcine herniation is present left to right side by approximately 4 mm. There is no hydrocephalus. The midbrain and posterior fossa are right brain are unremarkable. The calvarium is intact. No visible fracture. No pneumocephalus or orbital emphysema. The sinuses and middle ears and mastoids appear clear. No air-fluid levels. No wedge-shaped territorial infarct. Further evaluation with brain MRI without and with gadolinium contrast is recommended. Findings are reviewed with Dr. Wen in the emergency department at approximately [address]/CT head/brain wo con IMPRESSION: -Left supratentorial vasogenic edema with 4 6 mm subfalcine herniation and diffuse effacement left cerebral sulci. Suspect 2 cm low attenuation mass within left parietal lobe. -Scattered small intraparenchymal petechial hemorrhage left occipital parietal region. No acute intraparenchymal hemorrhage, intraventricular hemorrhage, or extra-axial hematoma. -Recommend MR brain without and with gadolinium contrast to further characterize.
--- NOTE | ~2021-12-12 | XR_ITS ---
EXAMINATION: CHEST AND LUMBAR SPINE. CLINICAL INFORMATION: False. COMPARISON: CT abdomen pelvis 10/17/2019 TECHNIQUE: 4 views lumbar spine and chest one view. FINDINGS: Lumbar spine: There is normal lumbar lordosis. The vertebral heights are normal. There is grade 1 anterolisthesis L3 over L4. Rest of the vertebral alignment is normal.. There is loss of L4-L5 and L5-S1 disc heights. Rest of the disc heights are normal. No visible acute fracture, dislocation or subluxation seen. There is no lytic or sclerotic process. The SI joints are symmetrical. There is mild superior endplate deformity T12 vertebra. CHEST: The lungs are well-expanded and clear of acute process. Heart size and pulmonary vascularity is normal. No gross bony abnormality. XR/XR lumbar spine 2-3V IMPRESSION: Grade 1 anterolisthesis L4 over L5. There is mild loss of L5-S1 and L4-L5 disc heights. Mild superior endplate deformity T12 vertebra, unchanged to CT abdomen exam 10/17/2019. There is no acute fracture or lytic process seen. Unremarkable chest exam.
--- NOTE | ~2021-12-12 | XR_ITS ---
EXAMINATION: CHEST AND LUMBAR SPINE. CLINICAL INFORMATION: False. COMPARISON: CT abdomen pelvis 10/17/2019 TECHNIQUE: 4 views lumbar spine and chest one view. FINDINGS: Lumbar spine: There is normal lumbar lordosis. The vertebral heights are normal. There is grade 1 anterolisthesis L3 over L4. Rest of the vertebral alignment is normal.. There is loss of L4-L5 and L5-S1 disc heights. Rest of the disc heights are normal. No visible acute fracture, dislocation or subluxation seen. There is no lytic or sclerotic process. The SI joints are symmetrical. There is mild superior endplate deformity T12 vertebra. CHEST: The lungs are well-expanded and clear of acute process. Heart size and pulmonary vascularity is normal. No gross bony abnormality. XR/XR chest 1V IMPRESSION: Grade 1 anterolisthesis L4 over L5. There is mild loss of L5-S1 and L4-L5 disc heights. Mild superior endplate deformity T12 vertebra, unchanged to CT abdomen exam 10/17/2019. There is no acute fracture or lytic process seen. Unremarkable chest exam.
[2021-12-12 10:38] VITALS: BP 110/52; PULSE 96; RESP 18; TEMP 36.8; O2SAT 98; BMI 21.2
--- NOTE | 2021-12-12 10:42 | ECG_ITS ---
Test Reason : AMS Blood Pressure : / mmHG Vent. Rate : 104 BPM Atrial Rate : 104 BPM P-R Int : 140 ms QRS Dur : 136 ms QT Int : 372 ms P-R-T Axes : 071 -44 101 degrees QTc Int : 489 ms Sinus tachycardia Left axis deviation Left bundle branch block Abnormal ECG When compared with ECG of 25-NOV-2021 08:47, Vent. rate has increased BY 38 BPM Referred By: Generic ED Physician Electronically Signed By:Lenny Ramachandran
[2021-12-12 11:41] LABS: MANUAL DIFF FLAG NO
[2021-12-12 11:43] LABS: Basophils Percent Auto 0.5 % (0-2); Hemoglobin 12.3 g/dl (12.0-16.0); Imm Gran Abs Auto 0.02 X10*3/uL (0.00-0.03); Imm Gran Pct Auto 0.3 % (0.0-0.4); Lymphocytes Absolute Auto 1.3 X10*3/uL (1.2-4.9); Lymphocytes Percent Auto 20.7 % (20-40); Mean Corpuscular HGB Conc 31.5 g/dl (31.0-35.0); Mean Corpuscular Hemoglobin 26.5 pg (27.0-33.0); Mean Corpuscular Volume 84.1 fL (80.0-98.0); Monocytes Absolute Auto 0.8 X10*3/uL (0.1-1.2); Monocytes Percent Auto 12.4 % (2-11); Neutrophils Absolute Auto 4.1 x10*3/uL (2.0-8.3); Neutrophils Percent Auto 66.1 % (45-73); Platelet Count 334 X10*3/uL (160-400); Red Blood Count 4.64 X10*6/uL (4.20-5.50); White Blood Count 6.2 X10*3/uL (4.8-10.8)
[2021-12-12 12:04] LABS: Anion Gap 16 (12-20); Blood Urea Nitrogen 36 mg/dL (9-16); Calcium 9.2 mg/dL (8.4-10.2); Carbon Dioxide 21 mmol/L (22-29); Chloride 100 mmol/L (96-108); Creatinine Clr Calc Pharmacy 32.5; Estimated Glomerular Filt Rate 35; Glucose Random 116 mg/dL (60-115); Potassium 4.3 mmol/L (3.3-5.1); Sodium 133 mmol/L (135-145)
--- NOTE | 2021-12-12 14:00 | ED_ITS ---
HPI - Weakness General Chief complaint: General Medical Stated complaint: fall, weak, not eating, uti Time Seen by Provider: 12/12/21 11:17 Source: patient, family and old records reviewed Mode of arrival: ambulatory Limitations: altered mental status History of Present Illness HPI Narrative: seen here on 11/25 alert and oriented x 3 no falls, suffered panic attack after she was locked out of her laundry room and had been dealing with depression due to her sister's she was eating, ambulatory, well spoken and living alone without issue. Seen by crisis and CM at that time. Son now notes over the past month or so she cannot walk, she isn't eating, she is confused, she is falling at home. He states he checks on her every other weekend. He thinks she went downhill after her sister . MD Complaint: generalized weakness (cannot care for herself, forgetful, cannot do ADLs, fell one week ago, not eating) Onset (ago): month(s) (1) Duration: constant and progressively worsening Location: generalized Migration: none Severity: moderate Quality: dull Relieving factors: none Exacerbating factors: movement Context: depression Associated symptoms: other (FTT, not eating, depressed, falls at home not entirely sure when) Related Data Home Medications Medication Instructions Recorded Confirmed rosuvastatin 40 mg tablet 40 mg PO DAILY 05/23/21 07/24/21 polyvinyl alcohol 1.4 % eye drops 0 drp ophthalmic (eye) 11/03/21 (Artificial Tears (polyvinyl alcohol)) Previous Rx's Medication Instructions Recorded carvedilol 3.125 mg tablet 3.125 mg PO BID 90 days #180 tabs 07/21/21 Allergies Allergy/AdvReac Type Severity Reaction Status Date / Time No Known Allergies Allergy Mild N/A Verified 11/03/21 11:16 Review of Systems Review of Systems: ROS unable to be obtained due to altered mental status PMFSH Past Medical History Attestation statement: The following information was validated with the patient. Medical History Arthritis GERD (gastroesophageal reflux disease) Hyperlipemia Hypertension Surgical History History of appendectomy History of hysterectomy Family History Family History Father Hypertension Mother Hypertension Social History Social History Patient Tobacco Use Status: Never used Tobacco Use of substances other than those prescribed or required for medical reasons: No Advance Directives: Yes Advance Directives on File: Yes Advance Directives Date on File: 12/12/21 Physical Exam Vital Signs: Vital Signs: Last Vital Signs Temp 98.2 F 12/12/21 10:38 Pulse 78 12/12/21 14:46 Resp 16 12/12/21 14:46 BP 109/56 L 12/12/21 14:46 Pulse Ox 99 12/12/21 14:46 O2 Del Method 12/12/21 14:46 BMI result Body Mass Index 21.2 Appearance: Alert. Oriented X2. soft spoken repeating herself very different from visit on 11/25. laughing at times. Mild acute distress. Eyes: Pupils equal, round and reactive to light. ENT: Pharynx normal. Neck: Normal inspection. Neck supple. CVS: Normal heart rate and rhythm. Pulses normal. Respiratory: No respiratory distress. Breath sounds normal. Abdomen: Soft and nontender. Back: reports lower back pain but no step offs or trauma seen Skin: Skin warm and dry. Normal skin color. Normal skin turgor. Extremities: No lower extremity edema. No calf ttp Neuro: Oriented X 2. No motor deficit. No sensory deficit. 5/5 UE and LE while sitting, had to repeat multiple parts of the exam to get her to do the test Course Course Course Narrative: CT head ? mass dexamethasone ordered MRI with and without ordered call to MRI to see when they can take patient radiology states that they cannot send patient's to [facility] via internet [facility] closed to all transfers son no longer at bedside - patient states's hes in [place] I did call and leave message with Robert Oconnor [phone] will consult [facility] for possible transfer given mass with trace blood contusion mild subfalcine herniation and AMS - [facility] is closed to all transfers [facility] Emergency Department Dr. Harden - accepted son aware of transfer spoke on phone and reason for transfer MDM - Weakness MDM Narrative Medical decision making narrative: 76 yo female with hx of PFO, CKD, HTN, LBBB, cardiomyopathy seen here for depression and loneliness on 11/25 after having laundry issues and her sister . She now presents with falls at home, unable to take care of herself and weakness. At this time her son is here he lives in [place] and see here every 2 weeks. She has no other family or help. Will need labs, UA, CT head for trauma - fell sometime in the past week , lumbar spine imaging she denies pain other than low back, she was not confused on her visit here 11/25 she was very sharp and well spoken today she is more confused and repeating herself / innapropriate giggling she is very different from what I remember - head CT ordered son notes prior hx of stroke and patient did fall sometime in the past week. Lab Data Result diagrams: 12/12/21 11:23 12/12/21 11:23 Labs: Lab Results 12/12/21 12/12/21 12/12/21 Range/Units 11:23 11:23 11:23 WBC 6.2 (4.8-10.8) X10*3/uL RBC 4.64 (4.20-5.50) X10*6/uL Hgb 12.3 (12.0-16.0) g/dl Hct 39.0 (37.0-47.0) % MCV 84.1 (80.0-98.0) fL MCH 26.5 L (27.0-33.0) pg MCHC 31.5 (31.0-35.0) g/dl RDW 13.0 (11.0-16.0) % Plt Count 334 D (160-400) X10*3/uL MPV 10.0 (9.4-12.3) fL Immature Gran % (Auto) 0.3 (0.0-0.4) % Neut % (Auto) 66.1 (45-73) % Lymph % (Auto) 20.7 (20-40) % Andrews % (Auto) 12.4 H (2-11) % Eos % (Auto) 0.0 (0-4) % Baso % (Auto) 0.5 (0-2) % Lymph # (Auto) 1.3 (1.2-4.9) X10*3/uL Andrews # (Auto) 0.8 (0.1-1.2) X10*3/uL Eos # (Auto) 0.0 (0.0-0.4) X10*3/uL Baso # (Auto) 0.0 (0.0-0.2) X10*3/uL Abs Immat Gran (auto) 0.02 (0.00-0.03) X10*3/uL Absolute Neuts (auto) 4.1 (2.0-8.3) x10*3/uL Absolute Nucleated RBC 0.000 (0.0-0.012) X10*3/uL Nucleated RBC % (auto) 0.0 (0.0-0.2) /100WBC Sodium 133 L (135-145) mmol/L Potassium 4.3 (3.3-5.1) mmol/L Chloride 100 (96-108) mmol/L Carbon Dioxide 21 L (22-29) mmol/L Anion Gap 16 (12-20) BUN 36 H (9-16) mg/dL Creatinine 1.43 H (0.5-1.4) mg/dL Estim Creat Clear Calc 32.5 Estimated GFR 35 Random Glucose 116 H (60-115) mg/dL Calcium 9.2 D (8.4-10.2) mg/dL Magnesium 2.4 (1.6-2.6) mg/dL Total Bilirubin 0.8 (0.0-1.0) mg/dL Direct Bilirubin 0.4 (0.0-0.5) mg/dL AST 34 H D (5-31) U/L ALT 18 (0-31) U/L Alkaline Phosphatase 70 (39-117) U/L Total Protein 7.6 (6.5-8.0) g/dL Albumin 3.4 L (3.5-5.0) g/dL TSH 1.03 (0.32-4.0) uIU/mL COVID-19 ([facility]YANNA) Cancelled COVID-19 Clin Com Cancelled ECG Data Attestation: I personally reviewed and interpreted this ECG as follows: ECG interpretation date: 12/12/21 ECG interpretation time: 14:00 Interpretation: Rate: 104 Rhythm: sinus tachycardia [place]: left Normal P waves. Normal POPEYE. LBBB ST T wave : no LIZ, non-specific qTC: normal prior studies: unchanged from prior The study has been interpreted contemporaneously by me. . Critical Care Time Critical Care Time Critical Care Time: Yes Total Critical Care Time: 45 Attestation: review of records, consult to tertiary center, discussion with family about transfer I attest to this time spent taking care of the patient Discharge Plan Discharge Clinical Impression: Vasogenic cerebral edema, Left parietal mass Cerebral contusion Qualifiers: Encounter type: initial encounter Laterality: left Loss of consciousness presence/duration: without LOC Qualified Code(s): S06.320A - Contusion and laceration of left cerebrum without loss of consciousness, initial encounter Patient Disposition: [facility] Transfer Details: [facility] Prescriptions: No Action carvedilol 3.125 mg tablet 3.125 mg PO BID 90 Days Qty: 180 2RF Rx Instructions: must administer with a meal/food. polyvinyl alcohol [Artificial Tears (polyvin alc)] 1.4 % drops 0 drp ophthalmic (eye) rosuvastatin 40 mg tablet 40 mg PO DAILY
[2021-12-12 14:16] LABS: Alanine Aminotransferase 18 U/L (0-31); Albumin Level 3.4 g/dL (3.5-5.0); Alkaline Phosphatase 70 U/L (39-117); Aspartate Amino Transferase 34 U/L (5-31); Bilirubin Direct 0.4 mg/dL (0.0-0.5); Bilirubin Total 0.8 mg/dL (0.0-1.0); Magnesium 2.4 mg/dL (1.6-2.6); Total Protein 7.6 g/dL (6.5-8.0)
--- NOTE | 2021-12-12 14:16 | MHC.CM.ED ---
Received notification from registration patient is requesting to complete a HCP. Met with patient. HCP completed, signed, and witnessed. Original given to patient. Copy placed in chart.
[2021-12-12 14:36] LABS: TSH reflex Free T4 1.03 uIU/mL (0.32-4.0)
[2021-12-12 14:46] VITALS: BP 109/56; PULSE 78; RESP 16; O2SAT 99
--- NOTE | 2021-12-12 15:02 | PC.NURSE ---
pt alert but is unable to state where she is, does not know the year or month, pt reports that she is here because of dementia, pt very soft spoken this not pt's baseline, pt denies pain at this time, vs stable, no neuro deficits noticed at this time
[2021-12-12] MEDS: dexAMETHasone sod phosphate 4 MG/ML VIAL 8 MG IVPUSH (15:04)
--- NOTE | 2021-12-12 15:45 | PC.NURSE ---
@ 1508 [facility] PT TX LINE CALLED, @DR ST REQUEST, MU ANSWERS AND TELLS ME THEY ARE CLOSED TO ALL TRANSFERS BUT STEMI, STROKE, TRAUMA,PEDI, OB-PIT BOSS DR ST AWARE, ASKS FOR CALL TO BE PLACED TO [facility] @ 1515 CALL PLACED TO [facility] TX LINE @ DR ST REQUEST DR ST TAKES OVER CALL RIGHT AWAY
[2021-12-12 15:51] LABS: COVID-19 Test Negative (Negative); IDNOW Serial# 16C4AD1C
[2021-12-12 16:00] VITALS: BP 114/56; PULSE 99; RESP 16; TEMP 36.9; O2SAT 98
--- NOTE | 2021-12-12 16:15 | PC.NURSE ---
PATIENT WAS ASSISTED TO BATHROOM ,UNABLE TO VOID AT THIS TIME .
[2021-12-12 16:48] LABS: Basophils Percent Auto 0.3 % (0-2); Eosinophils Percent Auto 0.2 % (0-4); Hematocrit 35.4 % (37.0-47.0); Hemoglobin 11.4 g/dl (12.0-16.0); Imm Gran Abs Auto 0.03 X10*3/uL (0.00-0.03); Imm Gran Pct Auto 0.5 % (0.0-0.4); Lymphocytes Absolute Auto 1.1 X10*3/uL (1.2-4.9); MANUAL DIFF FLAG NO; Mean Corpuscular HGB Conc 32.2 g/dl (31.0-35.0); Mean Corpuscular Hemoglobin 26.7 pg (27.0-33.0); Mean Corpuscular Volume 82.9 fL (80.0-98.0); Monocytes Absolute Auto 0.6 X10*3/uL (0.1-1.2); Monocytes Percent Auto 9.4 % (2-11); Neutrophils Absolute Auto 4.2 x10*3/uL (2.0-8.3); Neutrophils Percent Auto 71.6 % (45-73); OBS Int Ctl Valid YES; OBS1 POSITIVE (NEGATIVE); Platelet Count 304 X10*3/uL (160-400); Red Blood Count 4.27 X10*6/uL (4.20-5.50); Red Cell Distribution Width 13.1 % (11.0-16.0); White Blood Count 5.9 X10*3/uL (4.8-10.8)
--- NOTE | 2021-12-12 17:20 | PC.NURSE ---
RN-RN report called in to [facility] ED.
[2021-12-12 18:00] VITALS: BP 109/51; PULSE 74; RESP 16; TEMP 36.4; O2SAT 97
== END 2021-12-12 19:29 | disposition short-term general hospital (02) ==
PROVIDERS: Physician Assistant; Physician Assistant Medical; Emergency Provider Emergency Medicine; PCP Internal Medicine
DX: S06.1X0A Traumatic cerebral edema without loss of consciousness, initial encounter (principal); S06.320A Contusion and laceration of left cerebrum without loss of consciousness, initial encounter; W19.XXXA Unspecified fall, initial encounter; R00.0 Tachycardia, unspecified; R53.1 Weakness; Z20.822 Contact with and (suspected) exposure to COVID-19; F32.A Depression, unspecified; I44.7 Left bundle-branch block, unspecified; I12.9 Hypertensive chronic kidney disease with stage 1 through stage 4 chronic kidney disease, or unspecified chronic kidney disease; N18.9 Chronic kidney disease, unspecified; E78.5 Hyperlipidemia, unspecified; Y93.9 Activity, unspecified; Y92.019 Unspecified place in single-family (private) house as the place of occurrence of the external cause; Y99.9 Unspecified external cause status
CPT/HCPCS: 36415; 70450; 71045; 72100; 80048; 80076; 82272; 83735; 84443; 85025; 86850; 86900; 86901; 87635; 93005; 96374; 99285; J1100